=== PATIENT | female | born 1980 | race Asian ===

== ENCOUNTER 2016-12-02 15:31 | Day surgery (SDC) | payer MEDICARE, OTHER ==
[~2016-12-02] VITALS: Ht 152.4 cm; Wt 50.5 kg
[2016-12-02 16:15] VITALS: Ht 152.4 cm; Wt 50.5 kg
[2016-12-02] MEDS ORDERED: LEVE500T8 PO (16:27)
[2016-12-02] MEDS ORDERED: FOLI-49 PO (16:27)
[2016-12-02] MEDS ORDERED: ZONI100C48 PO (16:27)
[2016-12-02 16:37] VITALS: BP 126/77; PULSE 68; RESP 20
[2016-12-02] MEDS ORDERED: MIDAZOLAM 1 MG/ML 2 ML INJ ONE (18:06)
[2016-12-02] MEDS ORDERED: FENTAnyl 50 MCG/ML VIAL ONE (18:06)
[2016-12-02 18:20] VITALS: BP 121/68; RESP 20
--- NOTE | 2016-12-02 18:41 | GILP ---
DATE OF PROCEDURE: 12/02/2016 NAME OF PROCEDURES: Colonoscopy and biopsy. SURGEON: Treva Paredes MD PREOPERATIVE DIAGNOSES: 1. Lower abdominal pain. 2. Chronic diarrhea. POSTOPERATIVE DIAGNOSES: 1. Colonoscopy all the way to the cecum. 2. Internal hemorrhoids. 3. Random biopsies were taken to rule out microscopic colitis. INDICATION FOR THE PROCEDURE: Ms. Lacey Carlisle is a 36-year-old female patient who had lower abd ominal pain and chronic diarrhea. The patient was scheduled for colonoscopy for further evaluation. The procedure and possible complications were well explained to the patient, she understood and cons ented to the procedure. DESCRIPTION OF PROCEDURE: Under the influence of fentanyl and Versed, the colonoscope was carefully introduced in the rectum and under direct vision, it was advanced all the way to the cecum. FINDINGS: The patient had internal hemorrhoids. The colonic mucosa was normal. Random biopsies we re taken to rule out microscopic colitis. She tolerated the procedure very well and there was no complication from the procedure. At the end of the procedures, she was awake with stable vital signs and she was discharged home to the care of her family. IMPRESSION: 1. Colonoscopy all the way to the cecum. 2. Random biopsies were taken to rule out microscopic colitis. 3. Internal hemorrhoids. PLAN: 1. Bentyl 10 mg p.o. t.i.d. p.r.n. for pain or diarrhea. 2. Await histopathology reports. Dictated By: TREVA SILVA/CLAUDIA Conf#: [id number] DID#: [id number] CC: TREVA PAREDES MD;*EndCC*
== END 2016-12-02 19:09 | disposition home or self-care (01) ==
LOC: GIL 15:31
PROVIDERS: ATTEND Internal Medicine Gastroenterology
DX: R19.4 Change in bowel habit (principal); K64.8 Other hemorrhoids
CPT/HCPCS: 45380; 88305; J2250; J3010